=== PATIENT | male | born 1960 | race Caucasian/White ===

== ENCOUNTER 2017-08-04 08:00 | Outpatient (RCR) | payer OTHER, SELFPAY ==
--- NOTE | 2017-06-09 10:50 | HP.OTEVAL_ITS ---
Patient's Visit Information SHUKRI FUNES is a 56 year old M, referred to Occupational Therapy by Doyle Carrillo, with a diagnosis of h/o stroke. Date of Evaluation: 06/09/17 Occupational Therapist: Virginie Almaraz - Subjective Subjective: Pt seen for initial occupational therapy evaluation for stroke effecting L side of brain on 06/02/17. 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 Pt was taken to hospital in [facility]. Lives w/ spouse in 2 story house, 4 steps 1 hr. 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 No AE in house. Hobbies camping and riding [place]. No numbness/tingling in hands or feet. Right handed. Lives in [place]. Wears glasses. - Objective Objective/Observation: Pt suffered stroke 06/02/17. Pt demo WFL BUE ROM and strength. Pt demo good peripheral vision and states no blurriness. - ROM ROM Comments: WFL BUE - Strength Photo Print Specialist: R 80#, L 60# Lateral Pinch: R 18#, L 20# Tripod Pinch: R 16#, L 16# Strength Comments: Pt demo good upper body strength. MMT generalized BUE strength 5/5 - Edema Other: no edema noted - Sensation Sensation Comments: Pt states no numbness or tingling - Visual/Perceptual Skills Visual Field Cut: No Left Neglect: No - Cognitive Skills Follows Directions: Yes Cognitive Comments: alert and oriented to person, place and date. - Attention Attention: Normal - Nine Hole Peg Right: 27 seconds Left: 26 seconds - DASH-Disabilities of Arm, Shoulder& Hand DASH Sum: 28 - Rehabilitation General Assessment: Pt demonstrates good upper body strength and healthcare sales representative strength. Pt is WFL ROM bilateral upper body and has no numbness or tingling. Pt demonstrates good upper extremity coordination and dexterity skills. Pt demo no vision deficits, with good ability to track pen with his eyes and states no blurry vision. Pt able to demo good peripheral vision skills with no signs of visual neglect. Pt states independent with all BADLs/IADLs at home. Pt does demonstrate difficulty getting his words out that he wants to say and short term memory difficulties, speech to address. No need for skilled occupational therapy at this time. Eval only. Rehabilitation Potential: Excellent - Anticipated Interventions Other Interventions: Eval only. No need for occupational therapy at this time. - Visit Plan General Plan: Eval only. Pt demonstrates good upper body strength and healthcare sales representative strength. Pt is WFL ROM bilateral upper body and has no numbness or tingling. Pt demonstrates good upper extremity coordination and dexterity skills. Pt demo no vision deficits, with good ability to track pen with his eyes and states no blurry vision. Pt able to demo good peripheral vision skills with no signs of visual neglect. Pt states independent with all BADLs/IADLs at home. Pt does demonstrate difficulty getting his words out that he wants to say and short term memory difficulties, speech to address. No need for skilled occupational therapy at this time. TEXT: Thank you for the opportunity to evaluate your patient. For Medicare and Medicare HMO plans, please review the plan of care and approve it. It will need to be FAXED BACK to us at [phone] for Medicare purposes. Please let me know if there are questions or concerns regarding this plan of care. Physician Signature: Date:
--- NOTE | 2017-06-14 14:50 | HP.SP.AD ---
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 Objective Cog/Ling/Com - Test Administered Sfubfmvam-Hjkdhzfcwm-Gxcbjyjcrsncg Assessment Administered: Yes Ipqjzbbdf-Bmphbgwkqz-Chooudhktrpvl Assessment: Cognitive Linguistic skills were evaluated using patient/family interview, skilled observation and informal evaluation through tasks completed by the patient. - Orientation Orientation: Person, Birthdate - Identification Body parts/objects: WNL Colors: WNL Letters: WNL Numbers: WNL - Answer Yes/No Questions Simple: WNL Complex: Moderate - Follows Commands 1 Step: WNL Complex: Mild - Automatic Sequences Automatic Sequences: WNL - Naming Responsive naming: Moderate - Conversational Tasks Conversational Tasks: Moderate Comments: Patient exhbited an error in nearly every sentence. He had omissions as well as substitutions. During responsive naming he said soaping, showing then showering for an answer. He attempted to self correct less than 25% of errors observed. - Reading Picture-Word Matching Picture-Word matching: WNL - Reading Comprehension Words: WNL Phrases: WNL Sentences: WNL - Oral Reading Words: WNL Phrases: WNL Sentences: WNL Comments: He exhibited difficulty in reading longer words but he and his reported that this is his baseline for reading. Subjective Artic/Phon - Articulation Intelligibility percentage in single words: 100% Intelligibility percentage in conversation: 100% Plan - Plan Plan: Speech therapy is warranted for moderate expressive asphasia characterized by decreased ability to express wants and needs functionally. The patient is also expressing significant frustration at deficits. He is not able to speak for his job at this time effectively. - Recommendations Treatment Warranted: Yes - Frequency Frequency: 1x/Week Duration: 2 Months Visits in this POC: 8 - Prognosis Prognosis: Good - Goals that are Established: Determination:: Goals will be added/modified as deemed necessary and appropriate. Therapy will be discontinued when results of re-evaluation indicate therapy is no longer needed or lack of progress has been documented. - Goal #1-5 Goal #1: Rex will express wants and needs on 4/5 trials with less than 2 word finding errors per 5 minutes of communication. Goal #2: Rex will answer questions functionally on 4/5 trials on 4 consecutive sessions with less than 5 word finding error in a 30 minute session. Goal #3: Further evaluation of recall skills. Education - Patient has Indicated that the Following Identified Educational Needs: None The Patient has indicated that they have no educational or learning abilities that may effect their care.: Yes - Patient Instruction Patient Education: Diagnosis, Treatment Plan, Goals, Home Exercise Program Person Taught: Patient, Family Teaching Method: Discussion Response to teaching: Verbalize understanding
--- NOTE | 2017-08-10 10:34 | HP.SP.DC_ITS ---
ST Discharge Summary - Discharged: Discharge: Rex Genao is discharged from [facility] as of August 04, 2017. He attended a total of 8 visits following his initial evaluation on 06/09/17. He progressed very well and had met all his goals. His goals focused on expressing himself functionally and without significant word finding deficits and recall skills. His communication is functional 100% of the time and only noted two errors ( word substitutions) in 60 minutes for the last session. Patient is 90-95% back to fluent speech. His recall skills are within normal limits at the time of discharge. Lengthy discussions were completed on returning to work appropriately to give himself mental breaks. Fatigue increases his deficits. He has already discussed this with his employer and I feel that is able to return to work slowly and increase hours as he feels appropriate. He is able to self monitor his own fatigue levels at this time. A copy of this discharge report will be sent to his physician.
== END 2017-08-04 19:00 | disposition home or self-care (01) ==
LOC: SP 08:00
PROVIDERS: Family Provider Physician Assistant Medical; PCP Physician Assistant Medical; Visit Provider Physician Assistant Medical
DX: Z86.73 Personal history of transient ischemic attack (TIA), and cerebral infarction without residual deficits (principal)
CPT/HCPCS: 92507; 92523; 97165